=== PATIENT | female | born 1965 | race Hispanic/Latino ===

== ENCOUNTER 2021-10-07 07:53 | Emergency (ER) | payer SELFPAY ==
--- NOTE | 2021-10-07 08:43 | RAD REPORT ---
EXAM DESCRIPTION: US - Abdomen Exam Limited - 10/07/2021 8:29 am CLINICAL HISTORY: EPIGASTRIC PAIN COMPARISON: No comparisons FINDINGS: No gallstones, sludge or other abnormalities within the gallbladder lumen. There is no wal l thickening or pericholecystic fluid. No intrahepatic biliary tree dilatation. Liver parenchymal echogenicity suggests underlying fatty inf iltration. Was not a dedicated liver examination. Extrahepatic biliary tree is partially obscured by bowel. Visualized portions are non dilated. Duct s tone is not suspected. IMPRESSION: No gallbladder or biliary tree abnormality identifiable.
[2021-10-07 09:13] LABS: Absolute Lymphocytes (CBC) 0.9 K/uL (0.7-4.9); Hematocrit 42.5 % (36.0-45.0); Lymphocytes % 14.4 % (15.3-44.8); MCV 76.7 fL (80-100); RBC Red Blood Cell Count 5.55 M/uL (3.86-4.86)
[2021-10-07] MEDS ORDERED: FAMOTIDINE 20 MG/2 ML VIAL IV ONE (09:31)
[2021-10-07] MEDS ORDERED: NA CHLORIDE 0.9% 1,000 ML ONE (09:31)
[2021-10-07] MEDS ORDERED: ONDANSETRON 4 MG/2 ML VIAL ONE ×2 (09:31→11:17)
[2021-10-07 09:33] LABS: Albumin 3.9 g/dL (3.4-5.0); Bilirubin Total 0.5 mg/dL (0.2-1.0); Protein, Total 8.3 g/dL (6.4-8.2)
[2021-10-07 09:35] LABS: Potassium 2.9 mmol/L (3.5-5.1)
--- NOTE | 2021-10-07 11:38 | RAD REPORT ---
EXAM DESCRIPTION: CT - Abdomen Pelvis W Contrast - 10/07/2021 11:13 am CLINICAL HISTORY: Epigastric pain COMPARISON: Abdomen Exam Limited dated 10/07/2021 TECHNIQUE: Biphasic, helical CT imaging of the abdomen and pelvis was performed following 100 ml non -ionic IV contrast. No oral contrast administered. All CT scans are performed using dose optimization technique as appropriate and may include automated exposure control or mA/KV adjustment according to patient size. FINDINGS: No suspicious findings in the lung bases. Liver shows a diffuse fatty infiltration pattern with no focal liver lesion. Portal vein is unremarka ble. Pancreas and spleen also unremarkable. Gallbladder and biliary tree are also without suspicious finding. Symmetric renal function is seen with no hydronephrosis or suspicious renal mass. No pyelonephritis o r acute parenchymal process. Urinary bladder is fully contracted along the floor of the pelvis. No ut erine abnormality. No solid ovarian mass lesion identified. No adrenal abnormalities. A 17 x 15 x 12 cm homogeneous fluid attenuation cystic mass is present filling the anterior and central aspect of th e lower abdomen and pelvis. This thin wall mass shows no septation, mural nodule or calcification. No fat component is identifiable. Large but benign ovarian cystadenoma would be the most likely etiolog y. No imaging characteristics to elevate likelihood of cystadenocarcinoma. No dilated bowel loops or bowel wall thickening. Appendix is normal. No active GI process identifiabl e. No free air, free fluid or inflammatory stranding. No bulky lymphadenopathy or solid mass lesion. No omental thickening. No suspicious bony findings. Prominent lower lumbar facet joint degenerative changes are present. The re is subluxation of L4 on L5 secondary to facet degenerative change. IMPRESSION: Proximally 17 centimeter homogeneous thin-walled cystic mass filling the pelvis and lowe r abdomen. Benign ovarian cystadenoma is the single most likely etiology. Diffuse fatty infiltration of the liver.
--- NOTE | 2021-10-07 11:53 | EDPHYS ---
Physician Documentation [facility] Name: Lulu Adrian Age: 56 yrs Sex: Female : 1965 Arrival Date: 10/07/2021 Time: 07:55 Bed 20 Private MD: ED Physician Harman Holland HPI: 10/07 08:38 This 56 yrs old Female presents to ER via Ambulatory with complaints of ms3 Abdominal Pain, Back Pain, Flank Pain, Nausea/Vomiting. 08:38 The patient presents with abdominal pain in the right upper quadrant. Onset: The ms3 symptoms/episode began/occurred acutely. Onset: The symptoms/episode began/occurred last month. The symptoms radiate to right back. Associated signs and symptoms: Pertinent positives: nausea and vomiting. The symptoms are described as sharp. Modifying factors: the symptoms are aggravated by food. Severity of pain: At its worst the pain was severe a 10 / 10 in the emergency department the pain is unchanged. Historical: - Allergies: 08:02 No Known Allergies; ss - PMHx: 08:02 Diabetes mellitus; High blood pressure; High Cholesterol; ss - PSHx: 08:02 None; ss - Immunization history:: Client reports receiving the 2nd dose of the Covid vaccine. - Social history:: Smoking status: Patient denies any tobacco usage or history of. ROS: 08:38 Constitutional: Negative for fever, and chills. Neck: Negative for injury, pain, and ms3 swelling, Cardiovascular: Negative for chest pain, and palpitations. Respiratory: Negative for shortness of breath, cough, wheezing, and pleuritic chest pain, MS/Extremity: Negative for injury and deformity, Skin: Negative for injury, rash, and discoloration, Hematologic/Lymphatic: Negative for swollen nodes, abnormal bleeding, and unusual bruising. 08:38 Abdomen/GI: Positive for abdominal pain, nausea and vomiting. 08:38 All other systems are negative. Exam: 08:38 Constitutional: This is a well developed, well nourished patient who is awake, alert, ms3 and in no acute distress. Head/Face: Normocephalic, atraumatic. Neck: Trachea midline, no cervical lymphadenopathy. Supple, full range of motion without nuchal rigidity, or vertebral point tenderness. No Meningismus. Chest/axilla: Normal chest wall appearance and motion. Nontender with no deformity. Cardiovascular: Regular rate and rhythm with a normal S1 and S2. No gallops, murmurs, or rubs. Normal PMI, no JVD. No pulse deficits. Respiratory: Lungs have equal breath sounds bilaterally, clear to auscultation and percussion. No rales, rhonchi or wheezes noted. No increased work of breathing, no retractions or nasal flaring. Skin: Warm, dry with normal turgor. Normal color with no rashes, no lesions, and no evidence of cellulitis. MS/ Extremity: Pulses equal, no cyanosis. Neurovascular intact. Full, normal range of motion. Psych: Awake, alert, with orientation to person, place and time. Behavior, mood, and affect are within normal limits. 08:38 Abdomen/GI: Inspection: abdomen appears normal, Bowel sounds: normal, Palpation: moderate abdominal tenderness, in the right upper quadrant. Vital Signs: 08:00 BP 119 / 80; Pulse 89; Resp 17; Pulse Ox 100% on R/A; Weight 108.86 kg; Height 5 ft. 5 ss in. (165.10 cm); Pain 10/10; 09:03 BP 119 / 69; Pulse 78; Resp 16; Pulse Ox 100% ; vg1 10:00 BP 103 / 62; Pulse 70; Resp 16; Pulse Ox 100% ; vg1 11:32 BP 136 / 83; Pulse 64; Resp 16; Pulse Ox 100% on R/A; vg1 08:00 Body Mass Index 39.94 (108.86 kg, 165.10 cm) ss MDM: 08:05 Patient medically screened. ms3 08:38 Differential diagnosis: cholecystitis, Cholelithiasis, gastritis, non-specific abd ms3 pain, pancreatitis. 11:52 Data reviewed: vital signs, nurses notes, lab test result(s), radiologic studies, and ms3 as a result, I will discharge patient. Counseling: I had a detailed discussion with the patient and/or guardian regarding: the historical points, exam findings, and any diagnostic results supporting the discharge/admit diagnosis, lab results, radiology results, the need for outpatient follow up, to return to the emergency department if symptoms worsen or persist or if there are any questions or concerns that arise at home. ED course: Discussed labs, CT, and PE findings with patient. Patient to follow up with Dr Cervantes in 2-3 days. Patient understands/ agrees with plan. All questions answered. Return precautions discussed to include worsening symptoms, or any other concerns. On re-evaluation patient is improved, A/O x4, nad, non-toxic, ambulatory in ED, speaking full sentences.. 10/07 08:05 Order name: CBC with Diff; Complete Time: 09:32 ms3 10/07 08:05 Order name: CMP; Complete Time: 10:31 ms3 10/07 08:05 Order name: Lipase; Complete Time: 10:31 ms3 10/07 08:05 Order name: Abdomen Limited US; Complete Time: 09:13 ms3 10/07 10:37 Order name: CT Abd/Pelvis - IV Contrast Only; Complete Time: 11:44 ms3 10/07 08:05 Order name: IV Saline Lock; Complete Time: 08:52 ms3 10/07 08:05 Order name: Labs collected and sent; Complete Time: 08:52 ms3 Administered Medications: 09:08 Drug: Pepcid (famotidine) 20 mg Route: IVP; Site: right antecubital; vg1 10:21 Follow up: Response: No adverse reaction; Marked relief of symptoms vg1 09:26 Drug: NS 0.9% 1000 ml Route: IV; Rate: 1 bolus; Site: right antecubital; vg1 10:21 Follow up: IV Status: Completed infusion; IV Intake: 1000ml vg1 09:26 Drug: Zofran (Ondansetron) 4 mg Route: IVP; Site: right antecubital; vg1 10:21 Follow up: Response: No adverse reaction; Marked relief of symptoms vg1 12:06 Drug: Potassium Chloride 40 mEq Route: PO; vg1 12:06 Follow up: Response: Medication administered at discharge. vg1 Disposition Summary: 10/07/21 11:52 Discharge Ordered Location: Home ms3 Problem: new ms3 Symptoms: have improved ms3 Condition: Stable ms3 Diagnosis - Epigastric pain ms3 - Other and unspecified ovarian cysts ms3 - Hypokalemia ms3 Followup: ms3 - With: Ciara Cervantes MD - When: 2 - 3 days - Reason: Further diagnostic work-up Followup: ms3 - With: Jones, Esau, DO - When: 2 - 3 days - Reason: Recheck today's complaints Discharge Instructions: - Discharge Summary Sheet ms3 - Abdominal Pain, Adult ms3 Forms: - Medication Reconciliation Form ms3 - Thank You Letter ms3 - Antibiotic Education ms3 - Prescription Opioid Use ms3 Signatures: Dispatcher [employer] EDMS Paty York, RN RN ss Brandi Jarquin RN RN vg1 Harman Holland, DO DO ms3 Corrections: (The following items were deleted from the chart) 19:34 11:52 ED course: Discussed labs, CT, and PE findings with patient. Patient to follow up ms3 with PMD in 2-3 days. Patient understands/ agrees with plan. All questions answered. Return precautions discussed to include worsening symptoms, or any other concerns. On re-evaluation patient is improved, A/O x4, nad, non-toxic, ambulatory in ED, speaking full sentences.. ms3
--- NOTE | 2021-10-07 11:53 | ER ---
Nurse's Notes [facility] Name: Lulu Adrian Age: 56 yrs Sex: Female : 1965 Arrival Date: 10/07/2021 Time: 07:55 Bed 20 Private MD: Diagnosis: Epigastric pain;Other and unspecified ovarian cysts;Hypokalemia Presentation: 10/07 08:00 Chief complaint: Patient states: epigastric pain that radiates to RUQ and R flank. Pt ss saw Dr. Moody last week and was told that it could be her gallbladder, and to come to ER if pain worsened. Also c/o N/V. Coronavirus screen: Client denies travel out of the [place] in the last 14 days. Ebola Screen: Patient denies exposure to infectious person. Patient denies travel to an Ebola-affected area in the 21 days before illness onset. Initial Sepsis Screen: Does the patient meet any 2 criteria? No. Patient's initial sepsis screen is negative. Does the patient have a suspected source of infection? No. Patient's initial sepsis screen is negative. Risk Assessment: Do you want to hurt yourself or someone else? Patient reports no desire to harm self or others. Onset of symptoms was September 2021. 08:00 Method Of Arrival: Ambulatory ss 08:00 Acuity: NANETTE 3 ss Historical: - Allergies: 08:02 No Known Allergies; ss - PMHx: 08:02 Diabetes mellitus; High blood pressure; High Cholesterol; ss - PSHx: 08:02 None; ss - Immunization history:: Client reports receiving the 2nd dose of the Covid vaccine. - Social history:: Smoking status: Patient denies any tobacco usage or history of. Screenin:03 Abuse screen: Denies threats or abuse. Nutritional screening: No deficits noted. vg1 Tuberculosis screening: No symptoms or risk factors identified. Fall Risk No fall in past 12 months (0 pts). No secondary diagnosis (0 pts). IV access (20 points). Ambulatory Aid- None/Bed Rest/Nurse Assist (0 pts). Gait- Normal/Bed Rest/Wheelchair (0 pts) Mental Status- Oriented to own ability (0 pts). Total Guzman Fall Scale indicates No Risk (0-24 pts). Assessment: 09:03 General: Appears in no apparent distress. uncomfortable, Behavior is calm, cooperative. vg1 Pain: Complains of pain in epigastric area, posterior aspect of right lateral abdomen and right upper quadrant Pain currently is 8 out of 10 on a pain scale. Pain began x 1 month. Neuro: Level of Consciousness is awake, alert, obeys commands, Oriented to person, place, time, situation. Cardiovascular: Patient's skin is warm and dry. Respiratory: Airway is patent Respiratory effort is even, unlabored. GI: Abdomen is round non-distended, Bowel sounds present X 4 quads. Abdomen is tender to palpation in epigastric area and right upper quadrant Reports nausea, vomiting, since x 1 month Patient currently denies diarrhea. : No signs and/or symptoms were reported regarding the genitourinary system. EENT: No signs and/or symptoms were reported regarding the EENT system. Derm: Skin is intact, is healthy with good turgor. Musculoskeletal: Circulation, motion, and sensation intact. 10:21 Reassessment: Patient appears in no apparent distress at this time. Patient and/or vg1 family updated on plan of care and expected duration. Pain level reassessed. Patient is alert, oriented x 3, equal unlabored respirations, skin warm/dry/pink. Patient states feeling better. 11:32 Reassessment: Patient appears in no apparent distress at this time. No changes from vg1 previously documented assessment. Patient and/or family updated on plan of care and expected duration. Pain level reassessed. Patient is alert, oriented x 3, equal unlabored respirations, skin warm/dry/pink. Vital Signs: 08:00 BP 119 / 80; Pulse 89; Resp 17; Pulse Ox 100% on R/A; Weight 108.86 kg; Height 5 ft. 5 ss in. (165.10 cm); Pain 10/10; 09:03 BP 119 / 69; Pulse 78; Resp 16; Pulse Ox 100% ; vg1 10:00 BP 103 / 62; Pulse 70; Resp 16; Pulse Ox 100% ; vg1 11:32 BP 136 / 83; Pulse 64; Resp 16; Pulse Ox 100% on R/A; vg1 08:00 Body Mass Index 39.94 (108.86 kg, 165.10 cm) ED Course: 07:55 Patient arrived in ED. ld1 07:59 Harman Holland DO is Attending Physician. ms3 08:02 Triage completed. ss 08:02 Arm band placed on right wrist. ss 08:31 Abdomen Limited US In Process Unspecified. EDMS 08:48 Initial lab(s) drawn, by me, sent to lab. Inserted saline lock: 20 gauge in right dh3 antecubital area, using aseptic technique. Blood collected. 09:03 Brandi Jarquin, RN is Primary Nurse. vg1 09:03 Patient has correct armband on for positive identification. Bed in low position. Call vg1 light in reach. Side rails up X 1. Adult w/ patient. 11:15 CT Abd/Pelvis - IV Contrast Only In Process Unspecified. EDMS 11:51 Ciara Cervantes MD is Referral Physician. ms3 11:51 Esau Jones DO is Referral Physician. ms3 12:07 No provider procedures requiring assistance completed. IV discontinued, intact, vg1 bleeding controlled, No redness/swelling at site. Pressure dressing applied. Administered Medications: 09:08 Drug: Pepcid (famotidine) 20 mg Route: IVP; Site: right antecubital; vg1 10:21 Follow up: Response: No adverse reaction; Marked relief of symptoms vg1 09:26 Drug: NS 0.9% 1000 ml Route: IV; Rate: 1 bolus; Site: right antecubital; vg1 10:21 Follow up: IV Status: Completed infusion; IV Intake: 1000ml vg1 09:26 Drug: Zofran (Ondansetron) 4 mg Route: IVP; Site: right antecubital; vg1 10:21 Follow up: Response: No adverse reaction; Marked relief of symptoms vg1 12:06 Drug: Potassium Chloride 40 mEq Route: PO; vg1 12:06 Follow up: Response: Medication administered at discharge. vg1 Medication: 09:03 VIS not applicable for this client. vg1 Intake: 10:21 IV: 1000ml; Total: 1000ml. vg1 Outcome: 11:52 Discharge ordered by . ms3 12:07 Discharged to home ambulatory, with family. vg1 12:07 Condition: good 12:07 Discharge instructions given to patient, family, Instructed on discharge instructions, follow up and referral plans. medication usage, Demonstrated understanding of instructions, follow-up care, medications. 12:07 Patient left the ED. vg1 Signatures: Dispatcher [employer] Paty Xavier, RN RN Nina Griffith 3 Brandi Jarquin RN RN vg1 Harman Holland DO DO ms3 Ambika Hampton RN RN ld1
[2021-10-07] MEDS ORDERED: POTASSIUM CL SA 10 MEQ TAB PO ONE (12:03)
[2021-10-07 13:03] VITALS: O2SAT 100
[2021-10-07 13:09] VITALS: BP 136/83
== END 2021-10-07 12:07 | disposition home or self-care (01) ==
LOC: ER 07:53
DX: R10.13 Epigastric pain (principal); N83.299 Other ovarian cyst, unspecified side; E87.6 Hypokalemia; R11.2 Nausea with vomiting, unspecified; E11.9 Type 2 diabetes mellitus without complications
CPT/HCPCS: 36415; 74177; 76705; 80053; 83690; 85025; J2405; J3490; J7030; Q9967